=== PATIENT | female | born 1965 | race Caucasian/White ===

== ENCOUNTER 2023-05-03 01:17 | Emergency (ER) | payer MEDICARE, MEDICAID, SELFPAY ==
[2023-05-03 01:18] VITALS: BP 156/75; PULSE 94; RESP 18; TEMP 37.1; O2SAT 97; BMI 31.6
--- NOTE | 2023-05-03 01:28 | EDS_ITS ---
HPI History of Present Illness Chief Complaint: Hyperglycemia Informant: patient and friend Narrative Narrative: Patient presents due to hyperglycemia 576 at home tonight. She started taking a Medrol Dosepak 3 days ago, she states she was prescribed this in addition to an antibiotic for possible sinus infection and some chest tightness. Her chest is not bothering her right now. She does not have asthma, dyspnea, COPD/emphysema. Friend states she was feeling a little shaky earlier, she has been intentionally keeping an eye on her blood sugars because of the prednisone as she was advised to do so. She always urinates a lot and states that she does not think she has been urinating more so than usual. She denies any other complaints. At home she took an additional glipizide tonight because she does not have insulin to take and that was the only diabetic medication she could take an extra dose of. [facility] Medical History (Updated 05/03/23 @ 01:[address] Liam Wheeler MD) Type 2 diabetes mellitus Home Medications lisinopril 10 mg-hydrochlorothiazide 12.5 mg tablet (Zestoretic) 1 tab PO DAILY 09/22/15 [History Last Taken Unknown] canagliflozin 100 mg tablet (Invokana) 100 mg PO 07/23/17 [History Last Taken Unknown] gabapentin 100 mg capsule (Neurontin) 100 mg PO BID 07/23/17 [History Last Taken Unknown] Allergy/AdvReac Type Severity Reaction Status Date / Time codeine Allergy Nausea Verified 11/13/16 19:43 Social History Smoking Status: Current every day smoker tobacco type: cigarettes ROS ROS ED Constitutional Constitutional ED: Reports malaise; Denies chills or fever(s) Eyes Eyes: Denies change in vision or diplopia ENT ENT ED: Reports nasal congestion; Denies rhinorrhea or sore throat Cardiovascular Cardiovascular: Denies chest pain or palpitations Respiratory/Chest Respiratory/Chest: Reports chest congestion, chest tightness and cough; Denies dyspnea Gastrointestinal Gastrointestinal: Denies abdominal pain, diarrhea, nausea or vomiting Genitourinary Genitourinary ED: Reports urinary frequency; Denies dysuria or hematuria Musculoskeletal Musculoskeletal: Denies back pain or neck pain Integumentary Denies abscess or rash Neurologic Neurologic: Denies headache(s), paresthesias or weakness Psychiatric Psychiatric: Denies anxiety or suicidal thoughts Endocrine Endocrinology: Reports polydipsia and polyuria EXAM Physical Exam Const Vital Signs: 05/03/23 01:18 05/03/23 04:45 Temperature 98.7 F Temperature Source Temporal Pulse Rate 94 Respiratory Rate 18 18 Blood Pressure 156/75 H Blood Pressure Mean 102 Pulse Ox 97 Oxygen Delivery Method Room Air Positive well nourished, well developed and obese General Appearance ED: well developed and NAD Nutritional Appearance: obese HEENT Reports moist mucous membranes normocephalic and atraumatic Eyes PERRL and EOMs intact bilaterally Neck full ROM and supple Resp normal respiratory effort and clear to auscultation bilaterally Cardio regular rate, regular rhythm and no murmurs Rate: Negative for tachycardic GI non-tender and non-distended Auscultation: normoactive bowel sounds Palpation: soft Back/Spine no CVA tenderness General Back: other FROM Extremity normal to inspection General Extremety ED: Negative for edema, pulses abnormal or tenderness General Extremity: Negative for edema or pulses abnormal Neuro oriented x3, CN's II-XII intact bilaterally and no sensory deficits noted Neuro Narrative: Logical goal-directed thoughts Sensorium / Orientation: awake and alert Motor Exam: strength 5/5 throughout Psych mental status grossly normal Skin no rashes or lesions noted and no wounds MDM MDM MDM Narrative Medical decision making narrative: Patient was given a liter of IV fluids, we watched her for blood sugar after giving her insulin 16 units until we got it down to the low 200s, she is doing well and stable for discharge. My recommendation is to discontinue the steroids, I see no real risk to her doing that since she does not have a significant asthma flareup, COPD, etc. Lab Data Attestation: I reviewed the patient's lab results. Labs: Laboratory Results - last 24 hr 05/03/23 05/03/23 05/03/23 01:22 02:31 03:29 Sodium 129 L Potassium 4.4 Chloride 94 L Carbon Dioxide 30.0 Anion Gap 5 BUN 19 H Creatinine 1.45 H Estim Creat Clear Calc 48.63 Est GFR (MDRD) Af Amer 48 L Est GFR (MDRD) Non-Af 40 L BUN/Creatinine Ratio 13.1 Glucose 576 H* Calcium 9.3 POC Glucose > 500 H* 407 H 343 H 05/03/23 04:47 Sodium Potassium Chloride Carbon Dioxide Anion Gap BUN Creatinine Estim Creat Clear Calc Est GFR (MDRD) Af Amer Est GFR (MDRD) Non-Af BUN/Creatinine Ratio Glucose Calcium POC Glucose 223 H Discharge Plan Triage Chief Complaint: Hyperglycemia ED Provider: Liam Wheeler Dx/Rx/DC Orders Clinical Impression: Hyperglycemia due to type 2 diabetes mellitus Instructions: ED Diabetic Hyperglycemia Prescriptions: No Action lisinopril-hydrochlorothiazide [Zestoretic] 1 TABLET tablet 1 tab PO DAILY gabapentin [Neurontin] 100 MG capsule 100 mg PO BID canagliflozin [Invokana] 100 MG tablet 100 mg PO Primary Care Provider: JODY BADILLO Referrals: JODY BADILLO CRNP [Primary Care Provider] - 3-5 Days Activity Restrictions/Additional Instructions: Discontinue steroids. Disposition Disposition: Home, Self Care
[2023-05-03] MEDS: 0.9% Normal Saline 1,000 ML 999 ML IV (01:31)
[2023-05-03] MEDS: Insulin Lispro 100 UNIT/ML INSULN.PEN 16 UNIT SC (01:32)
[2023-05-03 01:43] LABS: Bedside Glucose > 500 mg/dL (74-106)
[2023-05-03 02:04] LABS: Anion Gap 5 (5-15); BUN 19 mg/dL (7-18); BUN/Creat Ratio 13.1 RATIO (10-20); Calcium,Total 9.3 mg/dL (8.5-10.1); Chloride 94 mmol/L (98-107); Creatinine, Serum 1.45 mg/dL (0.55-1.02); EST Glomerular Filtration Rate 40 mL/min (>60); Est Glom Filt Rate - Afr Amer 48 mL/min (>60); Estimated Creatinine Clearance 48.63 ml/min; Glucose 576 mg/dL (74-106); Potassium 4.4 mmol/L (3.5-5.1); Sodium Level 129 mmol/L (136-145)
[2023-05-03 02:50] LABS: Bedside Glucose 407 mg/dL (74-106)
[2023-05-03 03:49] LABS: Bedside Glucose 343 mg/dL (74-106)
[2023-05-03 04:45] VITALS: RESP 18
[2023-05-03 05:06] LABS: Bedside Glucose 223 mg/dL (74-106)
[2023-05-03 06:26] VITALS: BP 142/65; PULSE 79; RESP 16
[2023-05-03 06:38] LABS: Bedside Glucose 152 mg/dL (74-106)
== END 2023-05-03 06:28 | disposition home or self-care (01) ==
PROVIDERS: Emergency Provider Emergency Medicine; PCP Nurse Practitioner Adult Health; Visit Provider Emergency Medicine
DX: E11.65 Type 2 diabetes mellitus with hyperglycemia (principal); F17.210 Nicotine dependence, cigarettes, uncomplicated; R35.0 Frequency of micturition; R63.1 Polydipsia; R35.89 Other polyuria; E66.9 Obesity, unspecified
CPT/HCPCS: 80048; 82962; 96360; 99282; J7030; A4216

== ENCOUNTER → 2023-08-19 | Outpatient (CLI) | payer MEDICARE, MEDICAID, SELFPAY ==
[2023-08-19 17:30] LABS: Hepatitis C Antibody Non-Reactive (Nonreactive); Syphilis Antibodies Non-reactive
[2023-08-21 06:09] LABS: HSV 1 IgG < 0.91 index (0.00-0.90)
[2023-08-21 21:07] LABS: Chlamydia By Nucleic Acid AMP Negative (Negative); Gonococcus By Nucleic Acid AMP Negative (Negative)
[2023-08-23 14:09] LABS: HPV APTIMA, High Risk Negative (Negative)
== END | disposition home or self-care (01) ==
PROVIDERS: PCP Nurse Practitioner Adult Health; Referring Provider Nurse Practitioner Women's Health; Visit Provider Nurse Practitioner Women's Health
DX: Z12.4 Encounter for screening for malignant neoplasm of cervix (principal); Z20.2 Contact with and (suspected) exposure to infections with a predominantly sexual mode of transmission
CPT/HCPCS: 36415; 86695; 86696; 86780; 86803; 87491; 87591; 87624; 88175; G0145